=== PATIENT | female | born 1970 | race Two or more races ===

== ENCOUNTER 2023-06-06 08:21 | Emergency (ER) | payer OTHER ==
[~2023-06-06] VITALS: Ht 157.5 cm; Wt 60.8 kg
[2023-06-06] MEDS ORDERED: AUGMENTIN125 MG/5 M PO (08:34)
[2023-06-06] MEDS ORDERED: EVISTA60 MG PO (08:34)
[2023-06-06] MEDS ORDERED: CRESTOR20 MG PO (08:35)
== END 2023-06-06 10:00 ==
LOC: ER 08:21
DX: H11.31 Conjunctival hemorrhage, right eye (principal); Z91.013 Allergy to seafood; E78.49 Other hyperlipidemia